=== PATIENT | female | born 1985 | race Caucasian/White ===

== ENCOUNTER 2018-03-27 12:26 | Inpatient (IN) | payer MEDICAID ==
[~2018-03-27] VITALS: Ht 157.5 cm; Wt 62.1 kg
[2018-03-27 13:20] LABS: BASOPHILS 0.4 % (0-2); HEMATOCRIT 42.9 % (36.0-48.0); HEMOGLOBIN 15.1 g/dL (12-16); IMMATURE GRANULOCYTES 0.1 % (0-5); LYMPHOCYTES 28.4 % (15-50); MCH 31.4 pg (26.0-34.0); MCHC 35.2 g/dL (31.0-37.0); MCV 89.2 fL (80.0-100.0); MEAN PLATELET VOLUME 10.3 fL (7.4-10.4); MONOCYTES 6.2 % (2-11); NEUTROPHILS 63.9 % (40-80); PLATELET COUNT 227 10x3/uL (130-400); RBC 4.81 10x6/uL (4.00-5.40); RDW 12.6 % (11.5-14.5); WBC 6.9 10x3/uL (4.8-10.8)
[2018-03-27 13:21] LABS: APPEARANCE CLEAR (CLEAR); BILIRUBIN NEGATIVE (NEGATIVE); COLOR YELLOW (YELLOW); GLUCOSE NEGATIVE (NEGATIVE); KETONE NEGATIVE (NEGATIVE); NITRITE NEGATIVE (NEGATIVE); PROTEIN NEGATIVE (NEGATIVE); UROBILINOGEN NORMAL (NORMAL)
[2018-03-27 13:22] LABS: AMORPHOUS SEDIMENT <1+ /lpf (NONE SEEN); BACTERIA MANY /hpf (NONE SEEN); EPITHELIAL CELLS OCC /hpf (0-5); MUCUS >1+ /lpf (NONE SEEN); RED CELLS - URINE 0-5 /hpf (0-5)
[2018-03-27 13:34] LABS: ALBUMIN 4.2 g/dL (3.4-5.0); ALKALINE PHOSPHATASE 57 U/L (46-116); ALT (SGPT) 118 U/L (10-68); BILIRUBIN - TOTAL 1.63 mg/dL (0.2-1.3); CALC OSMOLALITY 277 mosm/kg (275-300); CALCIUM 8.8 mg/dL (8.5-10.1); CARBON DIOXIDE 25.2 mmol/L (21.0-32.0); CHLORIDE - SERUM 106 mmol/L (98-107); CREATININE - SERUM 0.8 mg/dL (0.6-1.3); GLUCOSE 106 mg/dL (74-106); POTASSIUM - SERUM 3.8 mmol/L (3.5-5.1); PROTEIN - SERUM 8.2 g/dL (6.4-8.2); SODIUM 139 mmol/L (136-145); UREA NITROGEN 12 mg/dL (7-18); eGFR NON AFRICAN AMERICAN 87 mL/min (90-120)
[2018-03-27 13:36] LABS: AMYLASE - SERUM 81 U/L (25-115); LIPASE 144 U/L (73-393)
[2018-03-27 13:37] LABS: TROPONIN-I < 0.017 ng/mL (0.000-0.060)
[2018-03-27 23:06] VITALS: BP 131/48
[2018-03-27 23:11] VITALS: BP 131/84; Ht 157.5 cm; Wt 62.1 kg
[2018-03-28 04:54] VITALS: BP 116/88
[2018-03-28 05:56] LABS: BASOPHILS 0.2 % (0-2); EOSINOPHILS 1.6 % (0-7); HEMATOCRIT 41.1 % (36.0-48.0); HEMOGLOBIN 14.3 g/dL (12-16); IMMATURE GRANULOCYTES 0.2 % (0-5); MCHC 34.8 g/dL (31.0-37.0); MONOCYTES 6.2 % (2-11); NEUTROPHILS 79.8 % (40-80); PLATELET COUNT 222 10x3/uL (130-400); RBC 4.62 10x6/uL (4.00-5.40); RDW 12.3 % (11.5-14.5); WBC 10.3 10x3/uL (4.8-10.8)
[2018-03-28 06:12] LABS: ALBUMIN 3.5 g/dL (3.4-5.0); ALKALINE PHOSPHATASE 60 U/L (46-116); ALT (SGPT) 88 U/L (10-68); BILIRUBIN - TOTAL 1.12 mg/dL (0.2-1.3); CALC OSMOLALITY 275 mosm/kg (275-300); CALCIUM 8.3 mg/dL (8.5-10.1); CARBON DIOXIDE 22.8 mmol/L (21.0-32.0); CHLORIDE - SERUM 106 mmol/L (98-107); CREATININE - SERUM 0.7 mg/dL (0.6-1.3); GLUCOSE 113 mg/dL (74-106); POTASSIUM - SERUM 3.6 mmol/L (3.5-5.1); SODIUM 138 mmol/L (136-145); UREA NITROGEN 10 mg/dL (7-18); eGFR NON AFRICAN AMERICAN > 90 mL/min (90-120)
[2018-03-28 06:17] LABS: APTT 30.2 SECONDS (22.8-39.4); INR 1.2 (0.85-1.17); PROTIME 14.8 SECONDS (11.6-15.0)
[2018-03-28 09:11] VITALS: BP 131/88
[2018-03-28 15:35] VITALS: BP 119/75
[2018-03-28 20:30] VITALS: BP 116/78
[2018-03-29 00:30] VITALS: BP 118/82
[2018-03-29 05:32] LABS: BASOPHILS 0.3 % (0-2); EOSINOPHILS 4.4 % (0-7); HEMATOCRIT 39.1 % (36.0-48.0); HEMOGLOBIN 13.3 g/dL (12-16); IMMATURE GRANULOCYTES 0.3 % (0-5); MCH 30.5 pg (26.0-34.0); MCV 89.7 fL (80.0-100.0); MEAN PLATELET VOLUME 10.8 fL (7.4-10.4); MONOCYTES 9.8 % (2-11); NEUTROPHILS 54.2 % (40-80); PLATELET COUNT 235 10x3/uL (130-400); RBC 4.36 10x6/uL (4.00-5.40); RDW 12.8 % (11.5-14.5)
[2018-03-29 05:38] LABS: WBC 6.8 10x3/uL (4.8-10.8)
[2018-03-29 05:49] LABS: ALBUMIN 3.2 g/dL (3.4-5.0); ALKALINE PHOSPHATASE 64 U/L (46-116); ALT (SGPT) 84 U/L (10-68); BILIRUBIN - TOTAL 0.52 mg/dL (0.2-1.3); CALC OSMOLALITY 276 mosm/kg (275-300); CALCIUM 8.1 mg/dL (8.5-10.1); CARBON DIOXIDE 24.4 mmol/L (21.0-32.0); CHLORIDE - SERUM 108 mmol/L (98-107); CREATININE - SERUM 0.6 mg/dL (0.6-1.3); GLUCOSE 119 mg/dL (74-106); POTASSIUM - SERUM 3.4 mmol/L (3.5-5.1); PROTEIN - SERUM 6.6 g/dL (6.4-8.2); SODIUM 139 mmol/L (136-145); UREA NITROGEN 8 mg/dL (7-18); eGFR NON AFRICAN AMERICAN > 90 mL/min (90-120)
[2018-03-29 06:13] VITALS: BP 129/88
[2018-03-29 08:48] VITALS: BP 127/78
[2018-03-29 15:26] VITALS: BP 134/86
[2018-03-29 19:50] LABS: HCG URINE NEGATIVE (NEGATIVE)
[2018-03-29 21:19] VITALS: BP 116/84
[2018-03-30 04:32] LABS: ALBUMIN 3.2 g/dL (3.4-5.0); ALKALINE PHOSPHATASE 58 U/L (46-116); ALT (SGPT) 80 U/L (10-68); BILIRUBIN - TOTAL 0.41 mg/dL (0.2-1.3); CALC OSMOLALITY 276 mosm/kg (275-300); CALCIUM 8.3 mg/dL (8.5-10.1); CARBON DIOXIDE 25.3 mmol/L (21.0-32.0); CHLORIDE - SERUM 108 mmol/L (98-107); CREATININE - SERUM 0.7 mg/dL (0.6-1.3); GLUCOSE 96 mg/dL (74-106); LIPASE 173 U/L (73-393); POTASSIUM - SERUM 3.5 mmol/L (3.5-5.1); PROTEIN - SERUM 6.8 g/dL (6.4-8.2); SODIUM 140 mmol/L (136-145); UREA NITROGEN 6 mg/dL (7-18); eGFR NON AFRICAN AMERICAN > 90 mL/min (90-120)
[2018-03-30 05:09] VITALS: BP 166/86
[2018-03-30 08:17] VITALS: BP 131/94
[2018-03-30 13:33] VITALS: BP 129/92
[2018-03-30 16:37] VITALS: BP 136/89
[2018-03-30 20:00] VITALS: BP 130/80
[2018-03-31 04:00] VITALS: BP 125/84
[2018-03-31 08:18] LABS: HEPATITIS C ANTIBODY <0.1 (0.0-0.9)
[2018-03-31 08:28] VITALS: BP 126/87
[2018-03-31 11:30] VITALS: BP 149/97
[2018-03-31 15:30] VITALS: BP 130/85
[2018-03-31 20:00] VITALS: BP 116/86
[2018-04-01] VITALS: BP 121/83
[2018-04-01 04:00] VITALS: BP 122/87
[2018-04-01 04:28] LABS: APPEARANCE CLEAR (CLEAR); BILIRUBIN NEGATIVE (NEGATIVE); COLOR YELLOW (YELLOW); GLUCOSE NEGATIVE (NEGATIVE); KETONE NEGATIVE (NEGATIVE); NITRITE NEGATIVE (NEGATIVE); PROTEIN NEGATIVE (NEGATIVE); SPECIFIC GRAVITY 1.015 (1.005-1.020); UROBILINOGEN NORMAL (NORMAL)
[2018-04-01 04:29] LABS: BASOPHILS 0.2 % (0-2); EOSINOPHILS 3.3 % (0-7); HEMATOCRIT 39.1 % (36.0-48.0); HEMOGLOBIN 13.6 g/dL (12-16); IMMATURE GRANULOCYTES 0.4 % (0-5); MCH 30.6 pg (26.0-34.0); MCHC 34.8 g/dL (31.0-37.0); MCV 88.1 fL (80.0-100.0); MEAN PLATELET VOLUME 10.6 fL (7.4-10.4); MONOCYTES 8.3 % (2-11); NEUTROPHILS 56.8 % (40-80); PLATELET COUNT 245 10x3/uL (130-400); RBC 4.44 10x6/uL (4.00-5.40); RDW 12.7 % (11.5-14.5); WBC 8.4 10x3/uL (4.8-10.8)
[2018-04-01 04:30] LABS: BACTERIA FEW /hpf (NONE SEEN); EPITHELIAL CELLS 0-5 /hpf (0-5); RED CELLS - URINE 0-5 /hpf (0-5); WHITE CELLS - URINE NSEEN /hpf (0-5)
[2018-04-01 04:52] LABS: ALBUMIN 3.1 g/dL (3.4-5.0); ALKALINE PHOSPHATASE 52 U/L (46-116); ALT (SGPT) 82 U/L (10-68); BILIRUBIN - TOTAL 0.48 mg/dL (0.2-1.3); CALC OSMOLALITY 273 mosm/kg (275-300); CALCIUM 8.1 mg/dL (8.5-10.1); CARBON DIOXIDE 27.7 mmol/L (21.0-32.0); CHLORIDE - SERUM 106 mmol/L (98-107); CREATININE - SERUM 0.7 mg/dL (0.6-1.3); GLUCOSE 96 mg/dL (74-106); POTASSIUM - SERUM 3.3 mmol/L (3.5-5.1); PROTEIN - SERUM 6.6 g/dL (6.4-8.2); SODIUM 138 mmol/L (136-145); UREA NITROGEN 6 mg/dL (7-18); eGFR NON AFRICAN AMERICAN > 90 mL/min (90-120)
[2018-04-01 07:27] LABS: CHLAMYDIA TRACHOMATIS, NAA Negative (Negative)
[2018-04-01 08:18] VITALS: BP 122/83
[2018-04-01 12:21] LABS: ANA REFLEX - DIRECT Negative (Negative)
[2018-04-01 21:34] VITALS: BP 124/85
[2018-04-02 06:18] VITALS: BP 118/79
[2018-04-02 08:09] VITALS: BP 123/73
[2018-04-02] MEDS ORDERED: ATARAX 25 MG TA25 MG PO (10:26)
[2018-04-02] MEDS ORDERED: OMNICEF300 MG PO (10:27)
[2018-04-02] MEDS ORDERED: PROTONIX40 MG PO (10:28)
[2018-04-02 12:54] VITALS: BP 133/90
[2018-04-02 16:16] LABS: MITOCHONDRIAL ANTIBODY 4.4 Units (0.0-20.0); SMOOTH MUSCLE ABS (ACTIN) 13 Units (0-19)
== END 2018-04-02 13:00 | disposition home or self-care (01) | DRG 690 ==
LOC: D.ER 12:26 → D.MS 17:38 → D.ER 18:09 → D.MS 04-02 13:00
PROVIDERS: Family Medicine; Internal Medicine Gastroenterology
PROC: BF101ZZ Fluoroscopy of Bile Ducts using Low Osmolar Contrast (ICD-10-PCS; 2018-04-01)
PROC: 0DB78ZX Excision of Stomach, Pylorus, Via Natural or Artificial Opening Endoscopic, Diagnostic (ICD-10-PCS; 2018-04-01)
PROC: 0F798ZZ Dilation of Common Bile Duct, Via Natural or Artificial Opening Endoscopic (ICD-10-PCS; principal; 2018-04-01 12:00)
DX: N39.0 Urinary tract infection, site not specified (principal); R10.11 Right upper quadrant pain; B96.20 Unspecified Escherichia coli [E. coli] as the cause of diseases classified elsewhere; R79.89 Other specified abnormal findings of blood chemistry